=== PATIENT | female | born 1995 | race Hispanic/Latino ===

== ENCOUNTER 2020-05-04 11:43 | Outpatient (CLI) | payer BC, OTHER ==
[2020-05-05 13:18] LABS: SARS-CoV-2 MS2 Positive; SARS-CoV-2 N Gene Negative; SARS-CoV-2 S Gene Negative; SARS-CoV-2 orf1ab Negative
== END 2020-05-04 11:44 | disposition home or self-care (01) ==
LOC: SCSLAB 11:43
PROVIDERS: ATTEND Obstetrics & Gynecology
DX: Z01.812 Encounter for preprocedural laboratory examination (principal); Z11.59 Encounter for screening for other viral diseases
CPT/HCPCS: 87635; U0003

== ENCOUNTER 2020-05-08 19:30 | Inpatient (IN) | payer BC, OTHER ==
[2020-05-09] MEDS ORDERED: Ibuprofen 800 MG TAB PO PRN (00:22)
[2020-05-09] MEDS ORDERED: Butorphanol Tartrate 1 MG/ML VIAL SLOW IVP PRN (00:22)
[2020-05-09] MEDS ORDERED: HYDROcodone/Acetaminophen 5/325 mg Tablet PO PRN ×4 (00:22→17:09)
[2020-05-09] MEDS ORDERED: Promethazine HCl 25 MG/ML VIAL IM PRN ×3 (00:22→17:09)
[2020-05-09] MEDS ORDERED: Lidocaine 1% (PF) 30 ML VIAL SC PRN (00:22)
[2020-05-09] MEDS ORDERED: Ondansetron PF 4 MG/2 ML Vial IVP PRN ×3 (00:22→17:09)
[2020-05-09] MEDS ORDERED: Lactated Ringer's 1,000 ML IV SCH (00:22)
[2020-05-09] MEDS ORDERED: NS w/ Oxytocin 10 units 500 ML IV SCH (00:22)
[2020-05-09] MEDS ORDERED: hydrALAZINE 20 MG/ML VIAL SLOW IVP PRN ×2 (00:22→17:09)
[2020-05-09] MEDS: Lactated Ringer's 1,000 ML IV SCH ×5 (00:35→13:35)
[2020-05-09 00:44] VITALS: BMI 25.8
[2020-05-09 01:04] LABS: Hemoglobin 11.1 g/dL (12.0-16.0); Mean Corpuscular HGB CONC 34.2 g/dL (32.0-36.0); Mean Corpuscular Volume 93.7 fL (78.0-98.0); Mean Platelet Volume 8.9 fL (7.4-10.4); Platelet Count 213 thou/uL (130-400); RBC Distribution Width 11.4 % (11.5-14.5); Red Blood Cell (RBC) Count 3.48 mill/uL (4.20-5.40); White Blood Cell (WBC) Count 7.2 thou/uL (4.8-10.8)
[2020-05-09] MEDS: Misoprostol 100 MCG TAB VAG SCH ×4 (01:16→17:51)
[2020-05-09 01:41] LABS: HBSAg Index 0.15 S/CO (0-0.99); Hep B Surf Ag Non-Reactive S/CO (NonReactive)
[2020-05-09 05:00] LABS: Syphilis Antibody Nonreactive (Nonreactive); Syphilis Antibody Index 0.04 S/CO (<1.00 Non-Reactive)
[2020-05-09] MEDS ORDERED: Bupivacaine/Epinephrine 0.25% 30 ML VIAL ONE (08:36)
[2020-05-09 08:42] LABS: HIV (1/2) Antibody/Antigen Non-Reactive (NonReactive); HIV 1/2 INDEX 0.12 S/CO (<1.00)
[2020-05-09] MEDS ORDERED: Fentanyl 4 mcg/Bup 0.1% Cadd 100 ML ONE (11:32)
[2020-05-09] MEDS ORDERED: Lactated Ringer's 500 ML IV PRN (13:34)
[2020-05-09] MEDS ORDERED: Naloxone HCl 0.4 mg/ml Vial IVP PRN ×2 (13:34)
[2020-05-09] MEDS ORDERED: Acetaminophen 325 MG TAB PO PRN (13:34)
[2020-05-09] MEDS ORDERED: diphenhydrAMINE 50 MG/ML VIAL IVP PRN (13:34)
[2020-05-09] MEDS ORDERED: EPHEDRINE 25 MG/5 ML SYRINGE SLOW IVP PRN (13:34)
[2020-05-09] MEDS ORDERED: Fentanyl 4 mcg/Bupivacaine 0.1% Cassette 100 ML EPIDURAL SCH (13:45)
[2020-05-09] MEDS ORDERED: Communication Order-Pharmacy FS SCH (13:45)
[2020-05-09] MEDS: NS / Oxytocin 40 units/1000ml 1,000 ML IV PRN ×2 (14:25→15:20)
[2020-05-09] MEDS ORDERED: Preparation H Ointment 28 GM TUBE PR PRN (17:09)
[2020-05-09] MEDS ORDERED: Bisacodyl 10 MG SUPP PR PRN (17:09)
[2020-05-09] MEDS ORDERED: Milk Of Magnesia 30 ML UDCUP PO PRN (17:09)
[2020-05-09] MEDS ORDERED: Benzocaine-Menthol 82.5 ML CAN TOP PRN (17:09)
[2020-05-09] MEDS ORDERED: diphenhydrAMINE 25 MG CAP PO PRN (17:09)
[2020-05-09] MEDS ORDERED: NS / Oxytocin 40 units/1000ml 1,000 ML IV SCH (17:09)
[2020-05-09] MEDS ORDERED: Lanolin Ointment 7 GM TUBE TOP PRN (17:09)
[2020-05-09] MEDS ORDERED: Zolpidem Tartrate 5 MG TAB PO PRN (17:09)
--- NOTE | 2020-05-09 18:03 | DN ---
DATE OF PROCEDURE: 05/09/2020 TIME OF SERVICE: 1420 hours. DIAGNOSIS: Severe variable decels . PROCEDURE: Outlet vacuum delivery with second-degree laceration. ANESTHESIA: Epidural. QUANTITATIVE BLOOD LOSS: Approximately 200 mL. COMPLICATIONS: None. OPERATIVE FINDINGS: 1. Vigorous male infant, 8 and 9 Apgars, weight is pending, delivered at 1420 hours. 2. Vacuum applied in the green range for approximately 30 seconds. No pop-offs over one contraction. 3. Placenta delivered intact. 4. 2-0 chromic repair of lacerations. COUNTS: Correct at the end of the procedure. DESCRIPTION OF PROCEDURE: I was called to Labor and delivery because of decels. When presenting, the patient was noted to . The patient had very dense epidural, was unable to push adequately. Vacuum was applied. After ensuring that the bladder was drained and the cervix was completely dilated, the was noted to be straight OA position. It was taken to yellow range for approximately 15 to 30 seconds, and with the next contraction, it was taken to the green range. Gentle traction was applied for approximately 30 seconds delivering the infant over an intact perineum, placing the onto the abdomen. Cord was clamped and handed off to the team in attendance. Usual cord blood sample obtained. Placenta was delivered spontaneously within 3 minutes. Inspection revealed there to be first- to second-degree bilateral sulcus lacerations with a small midline laceration. These were repaired using 2-[address] needle. Acosta catheter was replaced. Good uterine contraction was noted. Only minimal bleeding was noted. The patient was entered into routine care. Job ID: [id number]
[2020-05-09] MEDS: Docusate Calcium (SURFAK) 240 MG CAP PO SCH (20:39)
[2020-05-09] MEDS: Ibuprofen 800 MG TAB PO SCH (20:39)
[2020-05-10] MEDS: Ibuprofen 800 MG TAB PO SCH ×3 (06:01→21:55)
[2020-05-10] MEDS: Docusate Calcium (SURFAK) 240 MG CAP PO SCH ×2 (08:45→21:55)
[2020-05-10] MEDS: Prenatal Vitamin 1 TAB PO SCH (08:45)
[2020-05-10] MEDS ORDERED: Adacel (T-DAP) 0.5 ML SYRINGE IM ONE (09:00)
--- NOTE | 2020-05-10 09:37 | PDOC.PP ---
Post Progress Note Post Day #: 1 PO intake tolerated: yes Flatus: yes Ambulation: yes Vital Signs (12 hours) Temp Pulse Resp BP 05/10/20 08:00 98.2 F 62 18 107/58 L 05/10/20 06:00 98.1 F 64 14 119/72 05/10/20 02:11 98.0 F 74 14 107/56 L Weight Weight 170 lb - Physical Examination General: NAD Cardiovascular: no m/r/g, RRR Respiratory: clear to auscultation bilaterally, non-labored breathing Abdominal: + bowel sounds, lochia Extremities: negative homans (B) Neurological: no gross focal deficits Psychiatric: A&Ox3, normal affect Result Diagrams: 05/09/20 00:47 Additional Labs: Post Labs Blood Type O POSITIVE 05/09/20 01:44 Hep Bs Antigen Non-Reactive S/CO (NonReactive) 05/09/20 00:47 - Assessment/Plan doing well post . will dc home tomorrow 05/11
[2020-05-11] MEDS: Ibuprofen 800 MG TAB PO SCH ×2 (05:13→13:17)
--- NOTE | 2020-05-11 06:24 | PDOC.PP ---
Post Progress Note Post Day #: 2 PO intake tolerated: yes Flatus: yes Ambulation: yes Vital Signs (12 hours) Temp Pulse Resp BP Pulse Ox 05/10/20 19:31 98.1 F 64 12 136/76 99 Weight Weight 170 lb - Physical Examination General: NAD Cardiovascular: no m/r/g, RRR Respiratory: clear to auscultation bilaterally, non-labored breathing Abdominal: + bowel sounds, lochia, no distention, appropriately TTP Extremities: negative homans (B) Neurological: no gross focal deficits Psychiatric: A&Ox3, normal affect Result Diagrams: 05/09/20 00:47 Additional Labs: Post Labs Blood Type O POSITIVE 05/09/20 01:44 Hep Bs Antigen Non-Reactive S/CO (NonReactive) 05/09/20 00:47 - Assessment/Plan ppd 2 no issues dc home
[2020-05-11 08:21] VITALS: BP 144/83; TEMP 98.7
[2020-05-11] MEDS: Prenatal Vitamin 1 TAB PO SCH (08:24)
[2020-05-11] MEDS: Docusate Calcium (SURFAK) 240 MG CAP PO SCH (08:24)
== END 2020-05-11 17:43 | disposition home or self-care (01) | DRG 807 ==
LOC: L&D 05-09 00:14 → 3SW 05-09 16:32
PROVIDERS: ADMIT Obstetrics & Gynecology; ATTEND Obstetrics & Gynecology
PROC: 10D07Z6 Extraction of Products of Conception, Vacuum, Via Natural or Artificial Opening (ICD-10-PCS; principal; 2020-05-09)
PROC: 0KQM0ZZ Repair Perineum Muscle, Open Approach (ICD-10-PCS; 2020-05-09)
DX: O76 Abnormality in fetal heart rate and rhythm complicating labor and delivery (principal); O70.1 Second degree perineal laceration during delivery; Z37.0 Single live birth
CPT/HCPCS: 36415; 85027; 86780; 86850; 86900; 86901; 87340; 87389; J2405; J2590